=== PATIENT | male | born 1960 | race Caucasian/White ===

== ENCOUNTER 2018-04-24 08:00 | Outpatient (RCR) | payer BC ==
[2013-05-22 14:51] VITALS: BP 136/73
[~2018-04-24 08:00] MED LIST: AMOXICILLIN 8751 TAB PO; GOOD SENSE ASPI81 M1; MUPIROCIN22 TP; NORCO 325 MG-51 TAB PO
== END 2018-04-24 08:30 | disposition home or self-care (01) ==
LOC: OT 08:00
DX: G56.03 Carpal tunnel syndrome, bilateral upper limbs (principal); M79.1 Myalgia